=== PATIENT | male | born 1970 | race Caucasian/White ===

== ENCOUNTER 2024-10-22 02:50 | Emergency (ER) | payer MEDICARE, OTHER ==
[2024-10-22] MEDS: HYDROmorphone 1 MG/ML Syringe IM ONE (03:30)
[2024-10-22] MEDS: Lidocaine 1% with EPINEPHrine 1:100,000 50 ML MDV SUBCUT ONE (03:30)
[2024-10-22] MEDS ORDERED: traMADol 50 MG Tab ONE (04:00)
[2024-10-22] MEDS ORDERED: Cephalexin 500 MG Cap ONE (04:00)
[2024-10-22] MEDS: HYDROmorphone 2 MG/ML Syringe ONE (04:23)
== END 2024-10-22 04:13 | disposition home or self-care (01) ==
LOC: LB.ED 02:55
DX: S81.812A Laceration without foreign body, left lower leg, initial encounter (principal); I10 Essential (primary) hypertension; E11.9 Type 2 diabetes mellitus without complications; Z86.73 Personal history of transient ischemic attack (TIA), and cerebral infarction without residual deficits; Z79.84 Long term (current) use of oral hypoglycemic drugs; Z79.899 Other long term (current) drug therapy; Z88.8 Allergy status to other drugs, medicaments and biological substances; W18.42XA Slipping, tripping and stumbling without falling due to stepping into hole or opening, initial encounter
CPT/HCPCS: 12002; 12004; 96372; 99283; A9270-GY; J1171